=== PATIENT | male | born 1965 | race Caucasian/White ===

== ENCOUNTER 2018-01-13 12:47 | Outpatient (CLI) | payer OTHER ==
--- NOTE | 2018-01-13 16:11 | Diagnostic Imaging Report ---
SHARRON RENE [facility] [id number] [facility] [address] [place], [place]. [address] Report Submission Date: Jan 13, 2018 2:43:56 PM CDT Patient Study Name: JAROD RUIZ Date: Jan 13, 2018 12:49:41 PM CDT Modality Type: DX Gender: M Description: CHEST : 65 Institution: [facility] Physician: SHARRON RENE Examination: PA and lateral chest. History: Evaluate lung loera. CXR, FPC CURRENT USE OF OTHER MEDICATIONS. PT STATES NO CHEST COMPLAINTS AND THAT HE TAKES HUMIRA (Hx) Comparison exam: None provided. Findings: PA lateral chest demonstrate a normal cardiac and mediastinal silhouette. No focal infiltrate. No blunting of the costophrenic margins. Mild acromioclavicular joint degenerative changes. Impression: No acute pulmonary process. Electronically signed on Jan 13, 2018 2:43:56 PM CDT by: Roberth CORONA
== END 2018-01-13 12:50 ==
LOC: RAD 12:47
PROVIDERS: ATTEND Internal Medicine Rheumatology
DX: Z79.899 Other long term (current) drug therapy (principal)
CPT/HCPCS: 71046